=== PATIENT | female | born 1930 | race Caucasian/White ===

== ENCOUNTER 2017-02-02 16:20 | Inpatient (IN) | payer MEDICARE, OTHER ==
--- NOTE | ~2017-02-02 | OP ---
Record Of Operation [facility] [address] [place]. [address] NAME: PHAN RESTREPO : [birth year] STATUS : ADM IN PAT#: [id number] AGE: 86 ADM/REG DATE : 02/02/17 MR#: [id number] REPORT SERV DATE: 02/02/17 DICTATED BY: FLORENCE SORTO DATE: 02/02/17 REPORT STATUS : Draft TRANSCRIBED BY: MODL DATE: 02/02/17 DATE OF PROCEDURE: 02/02/2017 PREOPERATIVE DIAGNOSIS: Left periprosthetic mid to distal shaft femur fracture (history of short Gamma nail from intertrochanteric hip fracture which has healed). POSTOPERATIVE DIAGNOSIS: Left periprosthetic mid to distal shaft femur fracture (history of short Gamma nail from intertrochanteric hip fracture which has healed). PROCEDURE PERFORMED: Left femoral intramedullary michele fixation via conversion from short Gamma nail to long Gamma nail. SURGEON: Florence Sorto M.D. METHODOLOGIST: Donte Mcarthur. ANESTHESIA: Spinal with sedation. PROCEDURE IN DETAIL: The patient was clearly identified and after obtaining informed consent, was brought to the operating room at [facility] where she was given a spinal anesthetic with excellent anesthetic effect and carefully was then placed on the fracture table. Image intensification revealed acceptable length and rotation of the fracture itself, which was brought to length and her intertrochanteric fracture and proximal short Gamma nails were intact. This concluded, time-out procedure was performed after her left lower extremity and flank were prepped and draped in usual manner and this concluded, we initially began with removing the distal screw in the short Gamma nail uneventfully. We then proceeded to loosen the set screw proximally utilizing the previously used 2-inch incision. Skin was divided, fascial planes were elevated, and there was a lot of overgrowth and fibrotic tissues over the greater trochanteric area, but carefully using image intensification, overgrowth of tissues and bony overgrowth were all removed, whereupon the set screw was loosened. Attention then focuses on the lag screw where utilizing the region between two previously utilized incisions. Skin was divided, fascial planes were elevated. The screw itself was found; however, it was challenging to place the distracting screwdriver and guide to the screw, whereupon necessity it was carefully exposed. There was significant overgrowth to the lag screw. Osteotome was utilized to open the area such that the screw can be removed, whereupon it had been uneventfully removed. Subsequently, the Gamma nail itself was removed and a beaded guide pin was then carefully placed from the femur across the fracture site down towards the knee where there was a known total knee arthroplasty in good position alignment. Carefully imaging and assessing proper length being careful to incorporate fixation distally as there was a very long oblique component to the fracture as well as avoid contact with the total knee itself for disruption of the knee replacement. This was encountered. The long Gamma nail was then placed. It was a slight shelf, therefore, reaming was performed and the Gamma nail was uneventfully placed into position. The guide pin was utilized along the previously held lag screw position and re-drilled, whereupon a new lag screw was applied and locked statically proximally. With acceptable position and alignment of the fracture, perfect new [place] technique was utilized to place two Record Of Operation [address] [place]. [address] NAME: PHAN RESTREPO : [birth year] STATUS : ADM IN [facility]#: [id number] AGE: 86 ADM/REG DATE : 02/02/17 MR#: [id number] REPORT SERV DATE: 02/02/17 DICTATED BY: FLORENCE SORTO DATE: 02/02/17 REPORT STATUS : Draft TRANSCRIBED BY: MODL DATE: 02/02/17 distal screws, one static and one dynamic. This concluded, the leg was imaged and realized to be in good position alignment. Fixation seems quite stable and the leg was in good position, whereupon the wounds were all copiously irrigated and carefully closed in layers, whereupon the leg was then carefully cleansed and dressed. The patient was then allowed to more fully awaken and was returned to the recovery room in stable condition having tolerated the procedure well. ESTIMATED BLOOD LOSS: 100 mL. FLUIDS: 800 mL. TOURNIQUET TIME: None. PATHOLOGY: None. MICROBIOLOGY: None. COMPLICATIONS: None. SPONGE AND NEEDLE COUNTS: Reportedly correct. IMPLANTS: Jason Gamma nail, long. IMPLANTS REMOVED: Short Gamma nail. JUAQUIN/JOSE G Florence Sorto M.D. / [id number] CC: Florence Sorto M.D.
--- NOTE | ~2017-02-02 | DS ---
Discharge Summary [facility] [address] [place]. [address] NAME: PHAN RESTREPO : [birth year] STATUS : DIS IN PAT#: [id number] AGE: 86 ADM/REG DATE : 02/02/17 MR#: [id number] REPORT SERV DATE: 02/23/17 DICTATED BY: FLORENCE DURBIN DATE: 02/22/17 REPORT STATUS : Draft TRANSCRIBED BY: JOSE G DATE: 02/22/17 Data Collection from hospitalization DISCHARGE DIAGNOSES: 1. Left periprosthetic mid to distal shaft femur fracture (history of short Gamma nail from intertrochanteric hip fracture which had healed). 2. History of hypertension. 3. History of breast cancer. CONSULTATIONS: None. PROCEDURES PERFORMED: Left femoral intramedullary michele fixation via conversion from short Gamma nail to long Gamma nail, 02/02/2017. PATHOLOGY: Bone and soft tissue, left hip, excision-changes consistent with fracture site. Negative for malignancy. Orthopedic hardware removal-gross diagnosis. Colace 100 mg twice a day, Pepcid 20 mg twice a day, ferrous sulfate 300 mg with breakfast and supper, Neurontin 400 mg three times a day, Phenergan tablets one tablet with breakfast, Desyrel 100 mg at bedtime, Coumadin as instructed, Mylanta 30 mL as needed, Lioresal 10 mg every 12 hours as needed, Dulcolax 15 mg as needed, [place] 5/325 one tablet every four hours as needed, milk of magnesia 30 mL as needed, Zofran 4 mg every four hours as needed, MiraLax powder one packet twice a day as needed, Ultram 50 mg every four hours as needed, Nolvadex 10 mg daily. CONDITION ON DISCHARGE: Stable. DISPOSITION: The patient was discharged to [facility] on a regular diet with activities as instructed. HOSPITAL COURSE: This is an 86-year-old female who has a left periprosthetic fnr-or-rkoirz shaft femur fracture and a history of short Gamma nail from intertrochanteric hip fracture which has healed. Treatment options were discussed and it was elected to proceed with surgical intervention. She was admitted to the hospital at this time for further evaluation and treatment. Upon admission, she was taken to the operating room where she underwent the above-mentioned procedure. She tolerated this well. There were no complications. On postop day #1, she was in no acute distress. She had no new complaints. She had an immobilizer on the left leg. CLARA hose were in place. On the , she was in no acute distress. She was doing well postoperatively. She had no focal deficits. She had normal distal pulses. We encouraged her to mobilize with Physical Therapy as tolerated. She was transfused two units of packed red blood cells. Discharge planning was performed. On 02/06/2017, she was alert and cooperative. She continued to progress. Tamoxifen was continued. Discharge instructions were given. Due to her improved and stable condition, she was discharged to [facility] with the above-stated instructions. Information collected by: Raiza Canales Discharge Summary [address] [address] NAME: PHAN RESTREPO : [birth year] STATUS : DIS IN PAT#: [id number] AGE: 86 ADM/REG DATE : 02/02/17 MR#: [id number] REPORT SERV DATE: 02/23/17 DICTATED BY: FLORENCE DURBIN DATE: 02/22/17 REPORT STATUS : Draft TRANSCRIBED BY: JOSE G DATE: 02/22/17 I submit the above information as my discharge summary. TG/JOSE G Florence Durbin M.D. / [id number] CC: Florence Durbin M.D. [facility]
[~2017-02-02 16:20] MED LIST: AMB10 PO; ESGIC1 TAB OR; FESO4 PO; I20 PO; LIOR10 PO; LOVENOX40 SC; MVI PO; NEUR400 PO; NOLV10 PO; NORCO1 TA2 PO; NORCO1 TAB PO; PEP20 PO; PERCOCET1 TA4 PO; TRAZ100 PO
[2017-02-03 02:55] LABS: MEAN CORPUSCULAR HEMOGLOB 29.9 pg (26.0-34.0); MEAN PLATELET VOLUME 9.5 fL (9.2-13.0); PLATELET COUNT 161 10/3/uL (150-400); RBC DISTRIBUTION WIDTH 14.2 % (12.0-16.0); WHITE BLOOD CELLS 17.2 10/3/uL (4.5-10.5)
[2017-02-03 02:56] LABS: HEMATOCRIT 23.5 % (36.0-48.0); HEMOGLOBIN 7.9 g/dL (12.0-16.0); MANUAL DIFF YES %; MEAN CORPUS HGB CONC 33.6 g/dL (32.0-36.0); RED CELL COUNT 2.64 10/6/uL (4.0-5.6)
[2017-02-03 03:02] LABS: INTERNATIONAL NORMAL RATI 1.3 UNITS (-)
[2017-02-03 03:07] LABS: BUN (BLOOD UREA NITROGEN) 16 MG/DL (6-23); CALCIUM, SERUM 7.5 MG/DL (8.5-10.4); CHLORIDE, SERUM 108 MMOL/L (96-112); CO2 (CARBON DIOXIDE) 28 MMOL/L (24-34); CREATININE 0.81 MG/DL (0.55-1.02); GFR AFRICAN AMERICAN 75 ML/MIN (>=60); GFR NON AFRICAN AMERICAN 65 ML/MIN (>=60); GLUCOSE, SERUM 144 MG/DL (60-99); SODIUM, SERUM 143 MMOL/L (135-148)
[2017-02-03 03:09] LABS: PROTIME (NOT ORD) 15.6 SEC (12.0-14.5)
[2017-02-03 03:13] LABS: BAND NEUTROPHILS 3 %; IMMATURE GRANS ABSOLUTE (CALC) 0.17 10/3/uL (0.0-0.11); LYMPHOCYTES 3 %; LYMPHOCYTES ABSOLUTE (CALC) 0.52 10/3/uL (0.67-4.30); MONOCYTES 3 %; MONOCYTES ABSOLUTE (CALC) 0.52 10/3/uL (0.21-1.20); MYELOCYTES 1 %; SEGMENTED NEUTROPHIL (0) 90 %; TOTAL NUCLEATED CELLS 100
[2017-02-04 04:45] LABS: HEMATOCRIT 17.8 % (36.0-48.0)
[2017-02-04 04:54] LABS: PROTIME (NOT ORD) 22.4 SEC (12.0-14.5)
[2017-02-04 20:49] LABS: HEMATOCRIT 29.6 % (36.0-48.0); HEMOGLOBIN 9.7 g/dL (12.0-16.0)
[2017-02-05 05:31] LABS: HEMATOCRIT 28.4 % (36.0-48.0); HEMOGLOBIN 9.6 g/dL (12.0-16.0)
[2017-02-05 05:38] LABS: INTERNATIONAL NORMAL RATI 1.7 UNITS (-)
[2017-02-06 05:10] LABS: HEMATOCRIT 28.6 % (36.0-48.0); HEMOGLOBIN 9.2 g/dL (12.0-16.0)
[2017-02-06 05:17] LABS: INTERNATIONAL NORMAL RATI 1.7 UNITS (-); PROTIME (NOT ORD) 19.4 SEC (12.0-14.5)
[2017-02-06 05:24] LABS: CHLORIDE, SERUM 103 MMOL/L (96-112); CO2 (CARBON DIOXIDE) 32 MMOL/L (24-34); CREATININE 0.53 MG/DL (0.55-1.02); GFR AFRICAN AMERICAN 98 ML/MIN (>=60); GFR NON AFRICAN AMERICAN 85 ML/MIN (>=60); POTASSIUM, SERUM 3.6 MMOL/L (3.5-5.3); SODIUM, SERUM 141 MMOL/L (135-148)
[2017-02-06 05:25] LABS: BUN (BLOOD UREA NITROGEN) 12 MG/DL (6-23); CALCIUM, SERUM 8.6 MG/DL (8.5-10.4); GLUCOSE, SERUM 104 MG/DL (60-99)
== END 2017-02-06 11:22 | DRG 481 ==
LOC: 3SO 16:20
PROVIDERS: Nurse Practitioner Acute Care; Orthopaedic Surgery
PROC: 0QS904Z Reposition Left Femoral Shaft with Internal Fixation Device, Open Approach (ICD-10-PCS; principal; 2017-02-02 17:15)
PROC: 30233N1 Transfusion of Nonautologous Red Blood Cells into Peripheral Vein, Percutaneous Approach (ICD-10-PCS; 2017-02-03)
DX: M97.02XA Periprosthetic fracture around internal prosthetic left hip joint, initial encounter (principal); D62 Acute posthemorrhagic anemia
CPT/HCPCS: 36415; 36600; 71010; 73552-LT; 80048; 81001; 82330; 82803; 82947; 82962; 83735; 84132; 84295; 85014; 85018; 85025; 85610; 85730; 86850; 86900; 86901; 86920; 88300; 88304; 88311; 93005; 97110-GP; 97162-GP; 97165-GO; 99285; A9270-GY; C1713; C1769; G8978-CM-GP; G8979-CL-GP; G8987-CK-GO; G8988-CJ-GO; J0690; J2175; J2370; J2405; J3010; P9016